=== PATIENT | male | born 1990 | race Caucasian/White ===

== ENCOUNTER → 2024-09-19 | Outpatient (CLI) | payer BC ==
[2024-09-19 15:35] LABS: Basophils # (A) 0.04 X 10*3/uL (0.00-0.10); Basophils % (A) 0.7 %; Eosinophils # (A) 0.11 X 10*3/uL (0.04-0.35); HCT 46.4 % (39.6-50.0); Lymphocytes # (A) 1.54 X 10*3/uL (0.90-5.00); Lymphocytes % (A) 28.5 %; MCH 30.2 pg (27.0-32.0); MCHC 32.3 g/dL (32.0-37.0); MCV 93.5 FL (80.0-97.0); Mean Platelet Volume 10.6 FL (9.5-12.2); Monocytes # (A) 0.44 X 10*3/uL (0.20-1.00); Monocytes % (A) 8.1 %; NRBC Per 100 WBC 0 X 10*3/uL (0.00-0.01); Neutrophils # (A) 3.26 X 10*3/uL (1.80-7.70); Neutrophils % (A) 60.5 %; Platelet Count 270 X 10*3/uL (140-440); RBC 4.96 X 10*6/uL (4.40-5.60); RDW 12.6 % (11.5-14.5)
[2024-09-19 16:13] LABS: Blood Urea Nitrogen 22.9 mg/dL (9.0-27.0); Carbon Dioxide 27.8 mmol/L (21.6-31.8); Chloride 107 mmol/L (96-109); Glucose 83 mg/dL (70-110); Potassium 5.8 mmol/L (3.5-5.5); Sodium 141 mmol/L (135-145)
== END | disposition home or self-care (01) ==
LOC: LABPAT 10:28
PROVIDERS: ATTEND Urology
DX: Z01.812 Encounter for preprocedural laboratory examination (principal); N20.0 Calculus of kidney
CPT/HCPCS: 80048; 85025

== ENCOUNTER 2024-09-20 09:20 | Day surgery (SDC) | payer BC ==
[~2024-09-20 09:20] MED LIST: HYDROmorphone 0.5 MG/0.5 ML SYRINGE IVP PRN; LIDOCAINE 1% (10MG/ML) FOR IV START INTRADERMA PRN; METOCLOPRAMIDE 5 MG/ML 2 ML VIAL IVP PRN
--- NOTE | 2024-09-20 10:10 | XR ---
EXAMINATION TYPE: XR KUB DATE OF EXAM: 09/20/2024 9:42 AM COMPARISON: 02/01/2016 CLINICAL INDICATION: Male, 34 years old with history of N20.0 renal stone; [facility] TECHNIQUE: One radiographic view of the abdomen was obtained. FINDINGS: The bowel gas pattern is nonspecific without dilated loops of small or large bowel. . Fecal material and gas are demonstrated throughout the colon and rectum. There is no evidence for organome uriel or pneumoperitoneum. No acute osseous process. Bilateral renal calculi measuring up to 27 mm o n the right and 18 mm on the left. These are thought to be within the inferior renal pole and the lef t and right renal pelvis. IMPRESSION: Bilateral renal calculi measuring up to 20 cm and 18 mm on the left. These are thought to be within t he inferior renal pole and the left and right renal pelvis. Nonspecific bowel gas pattern without radiographic evidence for acute process. [facility], , 09/20/2024 10:07 AM
[2024-09-20] MEDS: IV FLUID CONTINUATION 1,000 ML IV ONE (10:56)
[2024-09-20] MEDS: LACTATED RINGERS 1,000 ML IV SCH (10:58)
[2024-09-20] MEDS: ONDANSETRON 4 MG/2 ML VIAL IVP ONE (11:01)
[2024-09-20] MEDS: DEXAMETHASONE SOD PHOSPHATE 4 MG/ML 1 ML VIAL IV ONE (11:02)
[2024-09-20] MEDS ORDERED: fentaNYL (PF) 50 MCG/ML 2 ML AMP ONE (11:20)
[2024-09-20] MEDS ORDERED: KETOROLAC 15 MG/ML 1 ML VIAL ONE (11:20)
[2024-09-20] MEDS ORDERED: HYDROmorphone (PF) 1 MG/ML ONE (11:20)
[2024-09-20] MEDS ORDERED: LIDOCAINE 1% INJ 10MG/ML (20 ML MDV) ONE (11:20)
[2024-09-20] MEDS ORDERED: PROPOFOL 10 MG/ML 20 ML VIAL IV ONE (11:20)
[2024-09-20] MEDS ORDERED: GLYCOPYRROLATE 0.2 MG/ML 2 ML VIAL ONE (11:20)
--- NOTE | 2024-09-20 11:23 | P.HPIHPCON ---
History of Present Illness H&P Date: 09/20/24 Chief Complaint: Bilateral renal stones This is a 34-year-old male with history of a bilateral kidney stones, the one on the right causing hydronephrosis. He did have a renal bladder ultrasound at his primary care office which showed evidence of an 12 mm and 8 mm right-sided renal stone and at 10 mm left-sided renal stone, the the one on the right is causing hydronephrosis. Of note he had a KUB this morning that showed stone burden on the right side is greater than 27 mm and on the left greater than 17 mm. Discussed with him given this finding this will need to be a staged procedure and I will be unable to completely remove the stones in the same setting. Option of bilateral ureteroscopy with holmium laser was discussed. Risk of bleeding, infection, injury to the ureter was discussed. Discussed he will need a follow-up second stage ureteroscopy in 1 to 2 weeks Consent for Procedure: I have explained the operation/procedure to the patient, including the risks, benefits, side effects, alternative therapies (including not receiving the proposed treatment or service), the likelihood of the patient achieving his/her goals, and potential recuperation problems for the procedure/sedation/analgesia, as well as any blood products, if indicated. I also explained to the patient the risks, benefits and side effects of the alternatives, as well as the risks related to not receiving the proposed procedure, care, treatment, or services. Past Medical History Past Medical History: No Reported History Additional Past Medical History / Comment(s): kidney stones History of Any Multi-Drug Resistant Organisms: None Reported Past Surgical History: No Surgical Hx Reported Past Anesthesia/Blood Transfusion Reactions: No Reported Reaction Smoking Status: Former smoker, Vaper - Past Family History Father Family Medical History: No Reported History Medications and Allergies Home Medications Medication Instructions Recorded Confirmed Type Hydrocodone/Acetaminophen [[place] 1 each PO Q6HR PRN #20 tab 02/01/16 09/20/24 Rx 5-325] Tamsulosin HCl [Flomax] 0.4 mg PO DAILY #10 cap 02/01/16 09/20/24 Rx Ergocalciferol [Vitamin D2 (1250 1,250 mcg PO Q7D 09/19/24 09/20/24 History Mcg = 15787 Iu)] Ketorolac [Toradol] 10 mg PO Q6HR PRN 09/19/24 09/20/24 History Allergies Allergy/AdvReac Type Severity Reaction Status Date / Time No Known Allergies Allergy Verified 09/20/24 10:41 Surgical - Exam Vital Signs Temp Pulse Resp BP Pulse Ox 97.4 F L 47 L 18 117/70 97 09/20/24 10:56 09/20/24 10:56 09/20/24 10:56 09/20/24 10:56 09/20/24 10:56 - General no distress, moderate pain - Eyes normal ocular movement, no pale - ENT normal nares, normal mucosa - Respiratory normal expansion, normal respiratory effort - Abdomen Abdomen: soft, non tender, no distended - Psychiatric oriented to time, oriented to person, oriented to place Assessment and Plan Assessment: OR for bilateral ureteroscopy, holmium laser lithotripsy, stone basketing, and stent insertion, this will be a staged procedure
[2024-09-20] MEDS: ceFAZolin 2 GM in DEXTROSE 5% IN WATER 50 ML IVPB PRN (11:25)
[2024-09-20 14:11] VITALS: TEMP 96.8
--- NOTE | 2024-09-20 14:15 | FL ---
EXAMINATION TYPE: FL guidance operating room DATE OF EXAM: 09/20/2024 2:07 PM COMPARISON: Pre Operative Images if available both CT/MRI or plain film CLINICAL INDICATION: Male, 34 years old with history of Cysto for becca kidney stones; TECHNIQUE: FL guidance operating room, multiple fluoroscopic images provided for procedure. DAP: 2.1423 mGym2 Gycm2 uGym2 cGycm2 or equivalent. FINDINGS: Multiple intraoperative fluoroscopic images were taken resulting in ureteral stent placement with sup erior pigtail in appropriate position projecting over the renal pelvis. No immediate intraoperative c omplication. IMPRESSION: 1. No evidence for intraoperative complication. 2. Please see the operative/procedural note for further details. [facility], , 09/20/2024 2:13 PM
[2024-09-20 14:18] VITALS: RESP 16
[2024-09-20 14:58] VITALS: BP 134/89
[2024-09-20 15:11] VITALS: PULSE 55
--- NOTE | 2024-09-20 15:40 | P.OP ---
Date of Procedure: 09/20/24 Preoperative Diagnosis: Bilateral renal stones Postoperative Diagnosis: Same Procedure(s) Performed: Cystoscopy, bilateral ureteroscopy, holmium laser lithotripsy, stone basketing and stent insertion Implants: 6 [place]er by 28 cm in the bilateral ureter Anesthesia: ALEKSANDRA Surgeon: Juan Camacho Estimated Blood Loss (ml): 10 Pathology: other (Bilateral kidney stones) Condition: stable Disposition: PACU Indications for Procedure: This is a 34-year-old male with history of a bilateral kidney stones, the one on the right causing hydronephrosis. He did have a renal bladder ultrasound at his primary care office which showed evidence of an 12 mm and 8 mm right-sided renal stone and at 10 mm left-sided renal stone, the the one on the right is causing hydronephrosis. Of note he had a KUB this morning that showed stone burden on the right side is greater than 27 mm and on the left greater than 17 mm. Discussed with him given this finding this will need to be a staged procedure and I will be unable to completely remove the stones in the same setting. Option of bilateral ureteroscopy with holmium laser was discussed. Risk of bleeding, infection, injury to the ureter was discussed. Discussed he will need a follow-up second stage ureteroscopy in 1 to 2 weeks Operative Findings: Right Large stone in the renal pelvis, second large stone in the lower pole On the left a large stone in the lower pole unable to completely visualize the stone given the acute angle of the lower pole Description of Procedure: Patient brought the operating room, and anesthesia was induced. He was prepped and draped in sterile fashion placed in dorsolithotomy position. Cystoscopy through the 21 [place]er sheath was inserted per urethra, cystoscopy was performed showed no abnormality within the bladder. Attention was then carried to the right ureteral orifice which was intubated with a sensor wire, the wire was advanced under fluoroscopy into the kidney. Next the 1113 [place] access sheath was passed over the wire into the proximal ureter, under fluoroscopy. Next a flexible ureteroscope was inserted through the access sheath, at this time a large stone was seen in the renal pelvis and additional large stone was seen in the lower pole the 2 stones were adherent to each other. Using the holmium laser the stones were dusted, any sizable stone fragments were removed using the stone basket. Repeat renoscopy showed no sizable fragments or injury to the kidney, but of note there was some backbleeding from the kidney, and significant amount of dust which limited visualization significantly. On fluoroscopy there was no clear radiopaque densities. Pullback ureteroscopy was performed showed no injury to the ureter or any ureteral stones, as ureteroscope was withdrawn a sensor wire was advanced through. Next a ureteral stent was passed over the wire, the proximal curl was realized on fluoroscopy and the distal curl was visualized using the cystoscope. Attention was then carried to the left side. the left ureteral orifice which was intubated with a sensor wire, the wire was advanced under fluoroscopy into the kidney. Next the 1113 [place] access sheath was passed over the wire into the proximal ureter. Next a flexible ureteroscope was inserted through the access sheath, at this time a large stone was seen in the lower pole, I was unable to completely visualize the entire stone given the acute angle of the lower pole using the holmium laser the stones were dusted, any sizable stone fragments were removed using the stone basket. Of note I was able to fragment approximately 50% of the stone but was unable to fragment the rest of the stone given the angle of the lower pole, attempts were made to reposition the stone using the stone basket but was unsuccessful, in addition the amount of dust limited visualization to safely basket the stone. At this time. Pullback ureteroscopy was performed showed no injury to the ureter and ureteral stones, as ureteroscope was withdrawn a sensor wire was advanced through. Next a ureteral stent was passed over the wire, the proximal curl was realized on fluoroscopy and the distal curl was visualized using the cystoscope. He will follow-up in 1 week for stage II ureteroscopy
== END 2024-09-20 15:23 | disposition home or self-care (01) ==
LOC: OR 09:20
PROVIDERS: ATTEND Urology
DX: N13.2 Hydronephrosis with renal and ureteral calculous obstruction (principal); K21.9 Gastro-esophageal reflux disease without esophagitis; Z87.891 Personal history of nicotine dependence; Z79.899 Other long term (current) drug therapy
CPT/HCPCS: 52356; 82365; 74018; C2625; C1769; J1100; J0690; J2405; J2003; J3010; J1171; J1885; J2704; J1596

== ENCOUNTER 2024-09-27 12:44 | Day surgery (SDC) | payer BC ==
--- NOTE | 2024-09-27 09:17 | P.HPIHPCON ---
History of Present Illness H&P Date: 09/27/24 Chief Complaint: Bilateral kidney stones This is a 34-year-old male with history of a bilateral kidney stones, right side is greater than 27 mm and on the left greater than 17 mm. Discussed with him given this finding this will need to be a staged procedure and I will be u jamesle to completely remove the stones in the same setting. He underwent stage I ureteroscopy on September 20. He presents today for stage II ureteroscopy. Option of bilateral ureteroscopy with holmium laser was discussed. Risk of bleeding, infection, injury to the ureter was discussed. Discussed he will need a follow- up second stage ureteroscopy in 1 to 2 weeks Consent for Procedure: I have explained the operation/procedure to the patient, including the risks, benefits, side effects, alternative therapies (including not receiving the proposed treatment or service), the likelihood of the patient achieving his/her goals, and potential recuperation problems for the procedure/sedation/analgesia, as well as any blood products, if indicated. I also explained to the patient the risks, benefits and side effects of the alternatives, as well as the risks related to not receiving the proposed procedure, care, treatment, or services. Past Medical History Past Medical History: No Reported History Additional Past Medical History / Comment(s): kidney stones History of Any Multi-Drug Resistant Organisms: None Reported Past Surgical History: No Surgical Hx Reported Additional Past Surgical History / Comment(s): 09/20/24 cystoscopy, becca ureteroscopy, becca ureteral stent Past Anesthesia/Blood Transfusion Reactions: No Reported Reaction Smoking Status: Former smoker Medications and Allergies Home Medications Medication Instructions Recorded Confirmed Type Hydrocodone/Acetaminophen [[place] 1 each PO Q6HR PRN #20 tab 02/01/16 09/22/24 Rx 5-325] Tamsulosin HCl [Flomax] 0.4 mg PO DAILY #10 cap 02/01/16 09/22/24 Rx Ergocalciferol [Vitamin D2 (1250 1,250 mcg PO Q7D 09/19/24 09/22/24 History Mcg = 90889 Iu)] Cephalexin [Keflex] 500 mg PO Q8HR #15 cap 09/20/24 09/22/24 Rx Ketorolac [Toradol] 10 mg PO Q6HR #10 tab 09/20/24 09/22/24 Rx Allergies Allergy/AdvReac Type Severity Reaction Status Date / Time No Known Allergies Allergy Verified 09/22/24 12:32 Surgical - Exam - General no distress, no pain - Eyes normal ocular movement, no pale - ENT normal nares, normal mucosa - Respiratory normal expansion, normal respiratory effort - Abdomen Abdomen: soft, non tender - Psychiatric oriented to time, oriented to person, oriented to place Assessment and Plan Assessment: OR for bilateral ureteroscopy, lithotripsy, stone basketing possible stent removal versus exchange
[~2024-09-27 12:44] MED LIST changes: -HYDROmorphone 0.5 MG/0.5 ML SYRINGE IVP PRN; -METOCLOPRAMIDE 5 MG/ML 2 ML VIAL IVP PRN; +MIDAZOLAM 2 MG/2 ML VIAL IV PRN; +ceFAZolin 2 GM in DEXTROSE 5% IN WATER 50 ML IVPB PRN; +fentaNYL (PF) 50 MCG/ML 2 ML AMP IVP PRN
--- NOTE | 2024-09-27 13:24 | XR ---
EXAMINATION TYPE: XR KUB DATE OF EXAM: 09/27/2024 1:02 PM COMPARISON: 09/20/2024 CLINICAL INDICATION: Male, 34 years old with history of kidney stone; PHH, pain. Preop bilateral kidn ey stones. History of prior surgery on 09/20/2024. TECHNIQUE: One radiographic view of the abdomen was obtained. FINDINGS: There are bilateral ureteral stents placed in the interval. Residual bilateral renal stones , while overall smaller from prior exam, measuring up to 1.7 cm on the right and 1.4 cm on the left. Extensive Steinstrasse is located along the proximal right ureteral stent. Nonobstructive bowel gas p attern. IMPRESSION: 1. Bilateral ureteral stents present. 2. There are residual bilateral renal stones though overall smaller from prior exam. Still measuring up to 1.7 cm on the right and 1.4 cm on the left. 3. Interval development of extensive Steinstrasse along the proximal right ureteral stent. [facility], , 09/27/2024 1:21 PM
[2024-09-27 13:43] LABS: Glucose,Whole Blood 88 mg/dL (70-110)
[2024-09-27] MEDS: IV FLUID CONTINUATION 1,000 ML IV ONE (13:45)
[2024-09-27] MEDS: LACTATED RINGERS 1,000 ML IV SCH (13:46)
[2024-09-27] MEDS: ONDANSETRON 4 MG/2 ML VIAL IVP ONE (13:46)
[2024-09-27] MEDS: DEXAMETHASONE SOD PHOSPHATE 4 MG/ML 1 ML VIAL IV ONE (13:46)
[2024-09-27] MEDS: HYDROmorphone 0.5 MG/0.5 ML SYRINGE IVP PRN (16:19)
[2024-09-27] MEDS ORDERED: fentaNYL (PF) 50 MCG/ML 2 ML AMP ONE (17:06)
[2024-09-27] MEDS ORDERED: MIDAZOLAM 2 MG/2 ML VIAL ONE (17:06)
[2024-09-27] MEDS ORDERED: HYDROmorphone (PF) 1 MG/ML ONE (17:06)
[2024-09-27] MEDS ORDERED: PROPOFOL 10 MG/ML 20 ML VIAL IV ONE (17:06)
[2024-09-27] MEDS ORDERED: LIDOCAINE 1% INJ 10MG/ML (20 ML MDV) ONE (17:06)
[2024-09-27] MEDS: LACTATED RINGERS 1,000 ML IV ONE (19:13)
[2024-09-27 19:30] VITALS: TEMP 97.6
--- NOTE | 2024-09-27 19:38 | P.OP ---
Date of Procedure: 09/27/24 Preoperative Diagnosis: Bilateral renal stones Postoperative Diagnosis: Same Procedure(s) Performed: Cystoscopy, bilateral ureteroscopy, holmium laser lithotripsy, stone basketing, stent exchange Implants: 6 Tongan by 28 cm in the bilateral ureters left on a string Anesthesia: ALEKSANDRA Surgeon: Juan Camacho Estimated Blood Loss (ml): 10 Pathology: other (Bilateral kidney stones) Condition: stable Disposition: PACU Indications for Procedure: This is a 34-year-old male with history of a bilateral kidney stones, right side is greater than 27 mm and on the left greater than 17 mm. Discussed with him given this finding this will need to be a staged procedure and I will be unable to completely remove the stones in the same setting. He underwent stage I ureteroscopy on September 20. He presents today for stage II ureteroscopy. Option of bilateral ureteroscopy with holmium laser was discussed. Risk of bleeding, infection, injury to the ureter was discussed. Discussed he will need a follow- up second stage ureteroscopy in 1 to 2 weeks Operative Findings: Multiple stones stones throughout the kidney, evidence of right Steinstrasse along the right proximal ureter Description of Procedure: Patient brought to the operating room, 2 anesthesia was induced. He was prepped and draped in sterile fashion placed in dorsolithotomy position. Cystoscopy fitted 21 Tongan sheath was inserted per urethra, cystoscopy was performed showed no abnormality within the bladder. Attention was then carried to the right ureteral orifice, the stent was grasped and removed to the meatus. Next a sensor wire was advanced through the stent under fluoroscopy. Next an 1214 Tongan access sheath was passed over the wire into the proximal ureter. The flexible ureteroscope was inserted to the access sheath, multiple small stones were seen in the proximal ureter. Using the stone basket all the stones were basketed, at this point I advance the scope into the kidney, renoscopy was performed which showed multiple small stones those were further fragmented using the holmium laser, any sizable fragments were removed using the stone basket. Repeat renoscopy showed no sizable fragments or injury to the kidney, on fluoroscopy there was no radiopaque densities identified. At this time pullback ureteroscopy was performed showed no injury to the ureter or any ureteral stones, as ureteroscope was withdrawn a sensor wire was advanced through. Next a ureteral stent was passed over the wire, the proximal curl visualized on fluoroscopy and the distal curl was visualized using cystoscope. The stent was left on a string and taped to the patient penis. This time attention was carried to the left side, the cystoscope was reinserted per urethra, the left ureter orifice was identified with the stent protruding from it. At this time the stent was grasped and removed to the meatus. Next a sensor wire was advanced through the stent. Next under fluoroscopy a 1214 Tongan access sheath was passed over the wire and into the proximal ureter. The flexible ureteroscope was inserted through the access sheath, at this point renoscopy was performed showed a large stone within the lower pole. An in addition to multiple small stones throughout the kidney, the small stones were grasped using the stone basket. The stone in the lower pole was also grasped using the stone basket and repositioned to the upper pole. Next using the holmium laser the stone was dusted, any sizable fragments were removed using the stone basket. Repeat ureteroscopy showed no sizable fragments or injury to the kidney, on fluoroscopy there was no radiopaque density seen. Pullback ureteroscopy was performed showed no injury to the ureter or any ureteral stones, as ureteroscope was withdrawn a sensor wire was advanced through. Next a ureteral stent was passed over the wire, the proximal curl was realized on fluoroscopy and the distal curl was visualized using the cystoscope. The stent was left on a string and taped to the patient penis. Patient tolerated procedure was taken recovery in stable condition
--- NOTE | 2024-09-27 19:41 | FL ---
EXAMINATION TYPE: FL guidance operating room DATE OF EXAM: 09/27/2024 7:30 PM COMPARISON: Pre Operative Images if available both CT/MRI or plain film CLINICAL INDICATION: Male, 34 years old with history of Cysto for becca kidney stones; TECHNIQUE: FL guidance operating room, multiple fluoroscopic images provided for procedure. DAP: 0.04799 mGym2 Gycm2 uGym2 cGycm2 or equivalent. FINDINGS: Multiple intraoperative fluoroscopic images were taken. No immediate intraoperative complication. No significant degeneration changes spine. IMPRESSION: 1. No evidence for intraoperative complication. 2. Please see the operative/procedural note for further details. [facility], , 09/27/2024 7:38 PM
[2024-09-27] MEDS: KETOROLAC 15 MG/ML 1 ML VIAL IVP STA (19:56)
[2024-09-27 20:38] VITALS: BP 128/74; PULSE 63; RESP 18
== END 2024-09-27 20:55 | disposition home or self-care (01) ==
LOC: OR 12:44
PROVIDERS: ATTEND Urology
DX: N20.0 Calculus of kidney (principal); Z87.442 Personal history of urinary calculi; Z87.891 Personal history of nicotine dependence
CPT/HCPCS: 84132; 82365; 74018; 52356; C2625; C1894; C1769; J2250; J1100; J2405; J2003; J3010; J1171 ×2; J1885; J2704